=== PATIENT | male | born 1990 | race Caucasian/White ===

== ENCOUNTER → 2021-01-18 | Emergency (ER) | payer OTHER ==
[~2021-01-18] VITALS: Ht 185.4 cm; Wt 88.6 kg
[~2021-01-18] MED LIST: ketorolac trometh inj. 60 MG/2 ML VIAL IM ONE
[2021-01-18 06:17] VITALS: BP 113/82
== END | disposition home or self-care (01) ==
LOC: ER 06:19
DX: R07.89 Other chest pain (principal); R05.9 Cough, unspecified; F17.210 Nicotine dependence, cigarettes, uncomplicated; Z72.89 Other problems related to lifestyle
CPT/HCPCS: 71101; 96372; 99283; J1885

== ENCOUNTER 2022-06-14 14:40 | Emergency (ER) | payer MEDICAID ==
[~2022-06-14] VITALS: Ht 185.4 cm; Wt 93.2 kg
[2022-06-14 14:43] VITALS: BP 133/77
[2022-06-14] MEDS ORDERED: iohexol 300mg/ml 100ml inj. ONE (15:33)
[2022-06-14] MEDS ORDERED: AMOX500C2 PO (15:45)
[2022-06-14 16:29] LABS: MONOTEST NEGATIVE (Neg)
[2022-06-14] MEDS ORDERED: LIDOcaine Viscous 15ml cup MM ONE (16:55)
[2022-06-14] MEDS ORDERED: amoxicillin 250mg capsule PO ONE (19:00)
== END 2022-06-14 19:32 | disposition home or self-care (01) ==
LOC: ER 14:40
DX: J02.0 Streptococcal pharyngitis (principal); B95.0 Streptococcus, group A, as the cause of diseases classified elsewhere; Z79.899 Other long term (current) drug therapy; Z72.89 Other problems related to lifestyle
CPT/HCPCS: 36415; 70491; 86308; 87880; 99285; J3490; Q9967

== ENCOUNTER 2023-06-29 11:08 | Emergency (ER) | payer MEDICAID ==
[~2023-06-29] VITALS: Ht 185.4 cm; Wt 97.7 kg
[2023-06-29 11:40] VITALS: BP 113/80; PULSE 69; RESP 14; TEMP 98; O2SAT 99
== END 2023-06-29 11:53 | disposition home or self-care (01) ==
LOC: ER 11:08
DX: H92.01 Otalgia, right ear (principal)
CPT/HCPCS: 99281